=== PATIENT | male | born 1955 | race Caucasian/White ===

== ENCOUNTER 2022-06-06 11:57 | Emergency (ER) | payer MEDICARE, OTHER ==
[~2022-06-06] VITALS: Ht 193 cm; Wt 107.5 kg
--- NOTE | 2022-06-06 12:24 | NUR ---
[id number] HOME, NOTED FOREHEAD HEMATOMA S/P FALLING OFF HIS WHELLCHAIR. PT DENIES LOC. LAC ON FOREHEAD NOTED. AAOX4. VSS. PT IS WHEELCHAIR BOUND. 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 PT PLACED ON BED AND CONNECTED TO MONITOR, AWAITING MD ORDERS.
--- NOTE | 2022-06-06 12:25 | NUR ---
DR. COCHRAN AT BEDSIDE.
--- NOTE | 2022-06-06 12:37 | NUR ---
RETURN FROM CT VIA [facility]
--- NOTE | 2022-06-06 14:16 | NUR ---
PT STATES "MY SISTER WILL BE HERE TO PICK ME UP IN 20 MINS".
--- NOTE | 2022-06-06 14:26 | NUR ---
Patient discharged to home in stable condition. Written and verbal after care instructions given. Patient verbalizes understanding of instruction.
--- NOTE | 2022-06-06 14:32 | NUR ---
PT STATES HE WOULD RATHER WAIT IN THE WAITING ROOM FOR SISTER. PT TRANSFERRED TO WHEELCHAIR AND WHEELED HIMSELF TO WAITING ROOM. PT IS AAOX4. VSS.
[2022-06-06 14:35] VITALS: BP 132/77
== END 2022-06-06 14:36 | disposition home or self-care (01) ==
LOC: ER 12:33
DX: S01.81XA Laceration without foreign body of other part of head, initial encounter (principal); I12.0 Hypertensive chronic kidney disease with stage 5 chronic kidney disease or end stage renal disease; N18.6 End stage renal disease; E11.22 Type 2 diabetes mellitus with diabetic chronic kidney disease; Z99.2 Dependence on renal dialysis; Z98.890 Other specified postprocedural states; W19.XXXA Unspecified fall, initial encounter; Y93.84 Activity, sleeping; Y92.89 Other specified places as the place of occurrence of the external cause; Y99.8 Other external cause status
CPT/HCPCS: 99284; 70450; 12011; A6403

== ENCOUNTER 2023-03-03 12:53 | Inpatient (IN) | payer MEDICARE, OTHER ==
[~2023-03-03] VITALS: Ht 185.4 cm; Wt 97.5 kg
[2023-03-03 14:56] LABS: BASOPHILS # (AUTO) 0.1 K/uL (0.0-0.2); BASOPHILS % (AUTO) 0.5 % (0.0-2.0); EOSINOPHILS # (AUTO) 0.4 K/uL (0.0-0.7); EOSINOPHILS % (AUTO) 3.1 % (0.0-6.0); HEMATOCRIT 30 % (39-51); HEMOGLOBIN 10.3 g/dL (13.5-17.5); LYMPHOCYTES # (AUTO) 1.2 K/uL (0.8-4.8); LYMPHOCYTES % (AUTO) 10.6 % (20.0-44.0); MEAN CORPUSCULAR HEMOGLOBIN 34 PG (26.0-33.0); MEAN CORPUSCULAR HGB CONC 34 g/dl (31.0-36.0); MEAN CORPUSCULAR VOLUME 100 fL (80-96); MONOCYTES # (AUTO) 1.5 K/uL (0.1-1.30); MONOCYTES % (AUTO) 13.1 % (2.0-12.0); NEUTROPHILS # (AUTO) 8.5 K/uL (1.8-8.9); NEUTROPHILS % (AUTO) 72.7 % (43.0-81.0); PLATELET COUNT (AUTO) 267 K/uL (150-450); RED BLOOD CELL COUNT(AUTO) 3.02 MIL/uL (4.5-6.0); RED CELL DISTRIBUTION WIDTH 14.2 % (11.5-15.0); WHITE BLOOD COUNT (AUTO) 11.7 K/uL (4.3-11.0)
[2023-03-03 14:59] LABS: INR 1.05 (0.91-1.10); PARTIAL THROMBOPLASTIN TIME 25.8 SEC (24.3-34.3); PROTHROMBIN TIME 11.1 SECS (9.2-11.1)
[2023-03-03 15:10] LABS: CALCIUM, SERUM 9.2 mg/dL (8.5-10.1); CREATININE 5.1 mg/dL (0.6-1.3); POTASSIUM 3.4 mmol/L (3.5-5.1)
[2023-03-03] MEDS ORDERED: HYDR-4077 PO (15:16)
[2023-03-03] MEDS ORDERED: LACT10SO3 PO (15:16)
[2023-03-03] MEDS ORDERED: METO100T14 PO (15:16)
[2023-03-03] MEDS ORDERED: NIFE-35 PO (15:16)
[2023-03-03] MEDS ORDERED: ATOR80TA PO (15:16)
[2023-03-03] MEDS ORDERED: LEVO175T7 PO (15:16)
[2023-03-03] MEDS ORDERED: HYDR-4209 PO (15:16)
[2023-03-03] MEDS ORDERED: DOCU100C36 PO (15:16)
[2023-03-03] MEDS ORDERED: GABA-532 PO (15:16)
[2023-03-03] MEDS ORDERED: INSU100V7 SQ (15:37)
[2023-03-03] MEDS ORDERED: BLOO-1280 IN (15:37)
[2023-03-03] MEDS ORDERED: SEVE800T8 PO (15:37)
[2023-03-03] MEDS ORDERED: Z GUARD REMEDY 4 OZ OINT TP PRN (17:00)
[2023-03-03] MEDS ORDERED: *INSULIN REGULAR(HUMULIN R)HUM 100 UNIT/ML VIAL SQ PRN (17:00)
[2023-03-03] MEDS ORDERED: ZOLPIDEM TARTRATE 5 MG TABLET PO PRN (17:00)
[2023-03-03] MEDS ORDERED: ONDANSETRON HCL/PF 4 MG/2 ML VIAL IVP PRN (17:00)
[2023-03-03] MEDS ORDERED: ACETAMINOPHEN 325 MG TABLET PO PRN (17:00)
[2023-03-03] MEDS ORDERED: DEXTROSE 50%-WATER 50 ML DISP.SYRIN IV PRN (17:00)
[2023-03-03] MEDS ORDERED: MAG HYDROX/AL HYDROX/SIMETH 30 ML UDC PO PRN (17:00)
[2023-03-03] MEDS ORDERED: MAGNESIUM HYDROXIDE 30 ML UDC PO PRN (17:00)
[2023-03-03] MEDS: BLOOD SUGAR DIAGNOSTIC 1 EACH STRIP VI SCH ×2 (17:52→21:21)
[2023-03-03] MEDS ORDERED: DOCUSATE SODIUM 100 MG CAPSULE PO PRN (19:30)
[2023-03-03] MEDS ORDERED: hydrALAZINE HCL 50 MG TABLET PO PRN (19:30)
[2023-03-03 20:00] VITALS: BP 137/63; TEMP 97.6; O2SAT 98
[2023-03-03] MEDS ORDERED: LACTULOSE 10 G/15 ML UDC (PYXIS) PO PRN (20:00)
[2023-03-03] MEDS: METOPROLOL TARTRATE 50 MG TABLET PO SCH (21:14)
[2023-03-03] MEDS: INSULIN REGULAR, HUMAN 100 UNIT/ML 3 ML VIAL SQ PRN (21:26)
[2023-03-03] MEDS ORDERED: INSULIN GLARGINE, 100 UNIT/ML CARTRIDGE SQ SCH (22:00)
[2023-03-03] MEDS ORDERED: ATORVASTATIN 40 MG TABLET PO SCH (22:00)
[2023-03-03] MEDS ORDERED: GABAPENTIN 100 MG CAPSULE PO SCH (22:00)
[2023-03-04] VITALS: BP 130/65; TEMP 97.8; O2SAT 95
[2023-03-04 04:00] VITALS: BP 126/65; TEMP 98.4; O2SAT 97
[2023-03-04 06:13] LABS: BASOPHILS # (AUTO) 0.1 K/uL (0.0-0.2); BASOPHILS % (AUTO) 0.4 % (0.0-2.0); EOSINOPHILS # (AUTO) 0.3 K/uL (0.0-0.7); EOSINOPHILS % (AUTO) 2.3 % (0.0-6.0); HEMATOCRIT 32 % (39-51); HEMOGLOBIN 10.7 g/dL (13.5-17.5); LYMPHOCYTES # (AUTO) 1.7 K/uL (0.8-4.8); LYMPHOCYTES % (AUTO) 11.8 % (20.0-44.0); MEAN CORPUSCULAR HEMOGLOBIN 34 PG (26.0-33.0); MEAN CORPUSCULAR HGB CONC 34 g/dl (31.0-36.0); MEAN CORPUSCULAR VOLUME 100 fL (80-96); MONOCYTES # (AUTO) 2.4 K/uL (0.1-1.30); MONOCYTES % (AUTO) 16.8 % (2.0-12.0); NEUTROPHILS # (AUTO) 9.6 K/uL (1.8-8.9); NEUTROPHILS % (AUTO) 68.7 % (43.0-81.0); PLATELET COUNT (AUTO) 272 K/uL (150-450); RED BLOOD CELL COUNT(AUTO) 3.15 MIL/uL (4.5-6.0); RED CELL DISTRIBUTION WIDTH 14.4 % (11.5-15.0)
[2023-03-04 06:34] LABS: CALCIUM, SERUM 9.3 mg/dL (8.5-10.1); MAGNESIUM 2.5 mg/dL (1.8-2.4); POTASSIUM 3.5 mmol/L (3.5-5.1)
[2023-03-04] MEDS: BLOOD SUGAR DIAGNOSTIC 1 EACH STRIP VI SCH ×2 (07:24→11:53)
[2023-03-04] MEDS: INSULIN REGULAR, HUMAN 100 UNIT/ML 3 ML VIAL SQ PRN ×2 (07:26→11:53)
[2023-03-04] MEDS: BLOOD SUGAR DIAGNOSTIC 1 EACH STRIP IN SCH ×2 (07:26→11:53)
[2023-03-04] MEDS: SEVELAMER CARBONATE 800 MG TABLET PO SCH ×2 (07:27→12:23)
[2023-03-04] MEDS ORDERED: LEVOTHYROXINE SODIUM 175 MCG TABLET PO SCH (07:30)
[2023-03-04] MEDS ORDERED: PANTOPRAZOLE 40 MG TABLET.DR PO SCH (07:30)
[2023-03-04 08:00] VITALS: BP 128/76; TEMP 97.6; O2SAT 97
[2023-03-04] MEDS ORDERED: IV D5/ 0.9% NACL 1,000 ML IV PRN (08:30)
[2023-03-04] MEDS: METOPROLOL TARTRATE 50 MG TABLET PO SCH (09:00)
[2023-03-04] MEDS ORDERED: NIFEdipine XL (30MG) 30 MG TAB PO SCH (09:00)
[2023-03-04 09:29] LABS: BAND % (MANUAL) 1 % (0.0-5.0); EOSINOPHILS % (MANUAL) 1 % (0-4); LYMPHOCYTES % (MANUAL) 9 % (16-48); MONOCYTES % (MANUAL) 14 % (0-11.0); NEUTROPHILS % (MANUAL) 75 (42-76); PLATELET ESTIMATE ADEQUATE
[2023-03-04] MEDS ORDERED: HEPARIN SODIUM, PORCINE 1,000 UNIT/ML VIAL ONE (09:52)
[2023-03-04] MEDS ORDERED: FENTANYL PF 100MCG/2ML AMPUL ONE (10:10)
[2023-03-04] MEDS ORDERED: IOHEXOL 50 ML IV ONE (11:24)
[2023-03-04 12:00] VITALS: BP 121/65; TEMP 97.9; O2SAT 92
[2023-03-04] MEDS ORDERED: ANCEF 1 GM/50 ML D5W IV SCH ×2 (18:00)
== END 2023-03-04 14:19 | disposition left against medical advice (07) | DRG 673 ==
LOC: ER 12:53 → TELE1 16:21
PROVIDERS: ADMIT Student in an Organized Health Care Education/Training Program; ATTEND Student in an Organized Health Care Education/Training Program
PROC: 05PY33Z Removal of Infusion Device from Upper Vein, Percutaneous Approach (ICD-10-PCS; principal; 2023-03-04)
PROC: 0JH63XZ Insertion of Tunneled Vascular Access Device into Chest Subcutaneous Tissue and Fascia, Percutaneous Approach (ICD-10-PCS; 2023-03-04)
PROC: 02HV33Z Insertion of Infusion Device into Superior Vena Cava, Percutaneous Approach (ICD-10-PCS; 2023-03-04)
PROC: B518YZA Fluoroscopy of Superior Vena Cava using Other Contrast, Guidance (ICD-10-PCS; 2023-03-04)
DX: T82.41XA Breakdown (mechanical) of vascular dialysis catheter, initial encounter (principal); N18.6 End stage renal disease; E87.1 Hypo-osmolality and hyponatremia; I12.0 Hypertensive chronic kidney disease with stage 5 chronic kidney disease or end stage renal disease; R65.10 Systemic inflammatory response syndrome (SIRS) of non-infectious origin without acute organ dysfunction; D64.9 Anemia, unspecified; E03.9 Hypothyroidism, unspecified; D72.829 Elevated white blood cell count, unspecified; Z66 Do not resuscitate; E87.6 Hypokalemia; Z79.4 Long term (current) use of insulin; E11.22 Type 2 diabetes mellitus with diabetic chronic kidney disease; Y92.009 Unspecified place in unspecified non-institutional (private) residence as the place of occurrence of the external cause; Y71.2 Prosthetic and other implants, materials and accessory cardiovascular devices associated with adverse incidents; Z99.2 Dependence on renal dialysis; Z89.512 Acquired absence of left leg below knee; Z89.421 Acquired absence of other right toe(s); M89.8X9 Other specified disorders of bone, unspecified site; Y84.8 Other medical procedures as the cause of abnormal reaction of the patient, or of later complication, without mention of misadventure at the time of the procedure
CPT/HCPCS: 36415; 71045-TC; 80048-TC; 82962-TC; 83735-TC; 84100-TC; 85025-TC; 85730-TC; A4223; C1750; G0378; J0330; J0690; J1644; J1815; J2405; J2704; J3010; J3490; J7040; J7042; J7060; Q9967

== ENCOUNTER 2024-08-01 18:46 | Inpatient (IN) | payer MEDICARE, OTHER ==
[~2024-08-01] VITALS: Ht 195.6 cm; Wt 98.9 kg
[~2024-08-01 18:46] MED LIST: ATOR80TA PO; BLOO-1280 IN; DOCU100C36 PO; GABA-532 PO; HYDR-4077 PO; INSU100V7 SQ; LACT10SO3 PO; LEVO175T7 PO; METO100T14 PO; NIFE-35 PO; SEVE800T8 PO
[2024-08-01 19:06] LABS: BASOPHILS # (AUTO) 0.1 K/uL (0.0-0.2); BASOPHILS % (AUTO) 0.9 % (0.0-2.0); EOSINOPHILS # (AUTO) 0.1 K/uL (0.0-0.7); EOSINOPHILS % (AUTO) 1.2 % (0.0-6.0); HEMATOCRIT 39 % (39-51); HEMOGLOBIN 13.2 g/dL (13.5-17.5); LYMPHOCYTES # (AUTO) 1.3 K/uL (0.8-4.8); LYMPHOCYTES % (AUTO) 10.6 % (20.0-44.0); MEAN CORPUSCULAR HEMOGLOBIN 36 PG (26.0-33.0); MEAN CORPUSCULAR HGB CONC 34 g/dl (31.0-36.0); MEAN CORPUSCULAR VOLUME 106 fL (80-96); MONOCYTES # (AUTO) 0.9 K/uL (0.1-1.30); MONOCYTES % (AUTO) 7.1 % (2.0-12.0); NEUTROPHILS # (AUTO) 9.8 K/uL (1.8-8.9); NEUTROPHILS % (AUTO) 80.2 % (43.0-81.0); PLATELET COUNT (AUTO) 268 K/uL (150-450); RED BLOOD CELL COUNT(AUTO) 3.67 MIL/uL (4.5-6.0); RED CELL DISTRIBUTION WIDTH 14.2 % (11.5-15.0); WHITE BLOOD COUNT (AUTO) 12.2 K/uL (4.3-11.0)
[2024-08-01] MEDS ORDERED: NITROGLYCERIN 0.4 MG/TAB BOTTLE ONE (19:07)
[2024-08-01] MEDS ORDERED: methylPREDNISolone SOD SUCC 125 MG/2ML VIAL ONE (19:07)
[2024-08-01] MEDS: NITROGLYCERIN 0.4 MG/TAB BOTTLE SL ONE (19:10)
[2024-08-01] MEDS: methylPREDNISolone SOD SUCC 125 MG/2ML VIAL IV ONE (19:10)
[2024-08-01] MEDS ORDERED: Magnesium 1GM/D5W 100ML PREMIX 200 ML IV ONE (19:11)
[2024-08-01] MEDS: Magnesium 1GM/D5W 100ML PREMIX 200 ML IV ONE (19:15)
[2024-08-01] MEDS ORDERED: IPRATROPIUM NEB FS 0.5 MG/2.5 ML AMPUL.NEB ONE (19:15)
[2024-08-01] MEDS ORDERED: ALBUTEROL FS 2.5 MG/3 ML VIAL.NEB ONE (19:17)
[2024-08-01 19:18] LABS: CALCIUM, SERUM 9.1 mg/dL (8.5-10.1); CARBON DIOXIDE 32 mmol/L (21-32); CHLORIDE 95 mmol/L (98-107); CREATININE 6.6 mg/dL (0.6-1.3); GLUCOSE 151 mg/dL (74-106); POTASSIUM 3.7 mmol/L (3.5-5.1); SODIUM SERUM 140 mmol/L (136-145); UREA NITROGEN, BLOOD 46 mg/dL (7-18)
[2024-08-01] MEDS: ALBUTEROL FS 2.5 MG/3 ML VIAL.NEB NEB ONE (19:23)
[2024-08-01] MEDS: IPRATROPIUM NEB FS 0.5 MG/2.5 ML AMPUL.NEB NEB ONE (19:23)
[2024-08-01 19:30] LABS: NT-PRO BNP > 25000 pg/mL (0-125)
[2024-08-01 20:03] LABS: INR 1.04 (0.91-1.10); PARTIAL THROMBOPLASTIN TIME 27.7 SEC (24.3-34.3)
[2024-08-01] MEDS ORDERED: MAG HYDROX/AL HYDROX/SIMETH 30 ML UDC PO PRN (21:00)
[2024-08-01] MEDS ORDERED: MAGNESIUM HYDROXIDE 30 ML UDC PO PRN (21:00)
[2024-08-01] MEDS ORDERED: ONDANSETRON HCL/PF 4 MG/2 ML VIAL IVP PRN (21:00)
[2024-08-01 22:00] VITALS: BP 172/89
[2024-08-01 22:01] VITALS: BP 167/85; O2SAT 97
[2024-08-01 22:19] VITALS: BP 167/85; TEMP 97.9
[2024-08-01] MEDS: CEFTRIAXONE 1 G in IV D5W 50 ML IV SCH (22:21)
[2024-08-01] MEDS: methylPREDNISolone SOD SUCC 40 MG/ML VIAL IV SCH (22:23)
[2024-08-01] MEDS: CEFTRIAXONE 1GM BAG (ER ONLY) 50 ML IV ONE (22:35)
[2024-08-01] MEDS: HEPARIN SODIUM, PORCINE 5000 UNITS/1 ML VIAL SQ SCH (22:38)
[2024-08-01 23:00] VITALS: BP 163/89; O2SAT 99
[2024-08-01] MEDS: IV NS 0.9% 250 ML IV PRN (23:08)
[2024-08-01] MEDS: IPRATROPIUM NEB FS 0.5 MG/2.5 ML AMPUL.NEB NEB SCH (23:08)
[2024-08-01] MEDS: ALBUTEROL FS 2.5 MG/0.5 ML VIAL.NEB NEB SCH (23:08)
[2024-08-02] VITALS (29 sets, daily range): BP systolic 124–178; BP diastolic 52–95; TEMP 98–98.2; O2SAT 93–100
[2024-08-02] MEDS: LIDOCAINE 5% (PATCH) 1 EA PATCH TP SCH (00:08)
[2024-08-02 02:51] LABS: BASOPHILS % (MANUAL) 0 % (0.0-2.0); EOSINOPHILS % (MANUAL) 2 % (0-4); LYMPHOCYTES % (MANUAL) 11 % (16-48); MONOCYTES % (MANUAL) 6 % (0-11.0); NEUTROPHILS % (MANUAL) 81 (42-76)
[2024-08-02 02:52] LABS: ANISOCYTOSIS 1+; PLATELET ESTIMATE ADEQUATE; STOMATOCYTES FEW
[2024-08-02 04:58] LABS: BASOPHILS % (AUTO) 0.2 % (0.0-2.0); HEMATOCRIT 38 % (39-51); LYMPHOCYTES # (AUTO) 0.4 K/uL (0.8-4.8); LYMPHOCYTES % (AUTO) 4.9 % (20.0-44.0); MEAN CORPUSCULAR HEMOGLOBIN 36 PG (26.0-33.0); MEAN CORPUSCULAR HGB CONC 34 g/dl (31.0-36.0); MEAN CORPUSCULAR VOLUME 105 fL (80-96); MONOCYTES # (AUTO) 0.2 K/uL (0.1-1.30); MONOCYTES % (AUTO) 2.2 % (2.0-12.0); NEUTROPHILS # (AUTO) 6.9 K/uL (1.8-8.9); NEUTROPHILS % (AUTO) 92.7 % (43.0-81.0); PLATELET COUNT (AUTO) 232 K/uL (150-450); RED BLOOD CELL COUNT(AUTO) 3.61 MIL/uL (4.5-6.0); RED CELL DISTRIBUTION WIDTH 13.8 % (11.5-15.0); WHITE BLOOD COUNT (AUTO) 7.4 K/uL (4.3-11.0)
[2024-08-02 05:32] LABS: CALCIUM, SERUM 8.6 mg/dL (8.5-10.1); CREATININE 6.6 mg/dL (0.6-1.3); MAGNESIUM 2.6 mg/dL (1.8-2.4); PHOSPHORUS 5.3 mg/dL (2.5-4.9); POTASSIUM 4.1 mmol/L (3.5-5.1)
[2024-08-02] MEDS: ASPIRIN 300 MG/SUPP.RECT RC ONE (07:22)
[2024-08-02] MEDS ORDERED: DEXTROSE 50%-WATER 50 ML DISP.SYRIN IV PRN (08:00)
[2024-08-02] MEDS: PANTOPRAZOLE 40 MG VIAL IV SCH (08:05)
[2024-08-02] MEDS ORDERED: NIFE30TA91 PO (08:44)
[2024-08-02] MEDS ORDERED: ISOS10TA2 PO (08:44)
[2024-08-02] MEDS ORDERED: TICA90TA PO (08:44)
[2024-08-02] MEDS ORDERED: PANT40TA2 PO (08:44)
[2024-08-02] MEDS ORDERED: INSU100I45 SQ (08:44)
[2024-08-02] MEDS ORDERED: HYDR-4076 PO (08:44)
[2024-08-02] MEDS ORDERED: ASPI-1169 PO (08:44)
[2024-08-02] MEDS ORDERED: METO25TA4 PO (08:44)
[2024-08-02] MEDS: ACETAMINOPHEN 325 MG TABLET PO PRN (10:11)
[2024-08-02] MEDS: BLOOD SUGAR DIAGNOSTIC 1 EACH STRIP IN SCH (11:20)
[2024-08-02] MEDS: INSULIN REGULAR, HUMAN 100 UNIT/ML 3 ML VIAL SQ PRN (11:22)
[2024-08-02] MEDS: methylPREDNISolone SOD SUCC 40 MG/ML VIAL IV SCH (12:30)
[2024-08-02] MEDS: IPRATROPIUM NEB FS 0.5 MG/2.5 ML AMPUL.NEB NEB SCH (12:30)
[2024-08-02] MEDS: ALBUTEROL FS 2.5 MG/0.5 ML VIAL.NEB NEB SCH (12:30)
[2024-08-02 13:15] LABS: ABG BASE EXCESS 1.8 mmol/L (-2.0-3.0); ABG OXYGEN SATURATION 63.1 % (94.0-98.0); ABG PCO2 40.6 mmHg (35.0-48.0); ABG PH 7.428 (7.350-7.450); ABG PO2 32.8 mmHg (83.0-108.0); ABG TOTAL HEMOGLOBIN 13.3 G/dL (13.5-17.5); MetHb 0.1 % (0.0-1.5); O2Hb 62.4 % (94.0-97.0); SITE, ABG RIGHT RADIAL
[2024-08-02 20:11] LABS: INR 1.05 (0.91-1.10); PARTIAL THROMBOPLASTIN TIME 26.1 SEC (24.3-34.3); PROTHROMBIN TIME 11.1 SECS (9.2-11.1)
[2024-08-02] MEDS: HEPARIN SODIUM, PORCINE 5000 UNITS/1 ML VIAL IV ONE (20:43)
[2024-08-02] MEDS: HEPARIN INFUSION/D5W 500 ML IV PRN (20:45)
[2024-08-02] MEDS: MORPHINE SULFATE INJ 4 MG/ML DISP.SYRIN IV ONE (21:02)
[2024-08-03] VITALS (24 sets, daily range): BP systolic 132–180; BP diastolic 62–90; TEMP 97.2–98.2; O2SAT 91–100
[2024-08-03 02:59] LABS: BASOPHILS % (AUTO) 0.2 % (0.0-2.0); HEMATOCRIT 34 % (39-51); HEMOGLOBIN 11.6 g/dL (13.5-17.5); LYMPHOCYTES # (AUTO) 0.7 K/uL (0.8-4.8); LYMPHOCYTES % (AUTO) 8.2 % (20.0-44.0); MEAN CORPUSCULAR HEMOGLOBIN 35 PG (26.0-33.0); MEAN CORPUSCULAR HGB CONC 34 g/dl (31.0-36.0); MEAN CORPUSCULAR VOLUME 105 fL (80-96); MONOCYTES # (AUTO) 0.9 K/uL (0.1-1.30); MONOCYTES % (AUTO) 10.8 % (2.0-12.0); NEUTROPHILS # (AUTO) 6.9 K/uL (1.8-8.9); NEUTROPHILS % (AUTO) 80.8 % (43.0-81.0); PLATELET COUNT (AUTO) 211 K/uL (150-450); RED BLOOD CELL COUNT(AUTO) 3.27 MIL/uL (4.5-6.0); RED CELL DISTRIBUTION WIDTH 14.1 % (11.5-15.0); WHITE BLOOD COUNT (AUTO) 8.6 K/uL (4.3-11.0)
[2024-08-03 03:06] LABS: CALCIUM, SERUM 8.5 mg/dL (8.5-10.1); CREATININE 5.9 mg/dL (0.6-1.3); POTASSIUM 4.5 mmol/L (3.5-5.1)
[2024-08-03] MEDS: PANTOPRAZOLE 40 MG TABLET.DR PO SCH (08:20)
[2024-08-03] MEDS: MORPHINE SULFATE INJ 2 MG/ML DISP.SYRIN IV PRN (10:57)
[2024-08-03] MEDS ORDERED: HEPARIN SODIUM,PORCINE/PF 50 UNIT/5 ML DISP.SYRIN IV ONE ×2 (11:00)
[2024-08-03] MEDS: HEPARIN SODIUM, PORCINE 5000 UNITS/1 ML VIAL IV ONE ×2 (11:02→18:16)
[2024-08-04] VITALS (16 sets, daily range): BP systolic 139–164; BP diastolic 71–91; TEMP 97.2–97.9; O2SAT 93–100
[2024-08-04 07:24] LABS: BASOPHILS % (AUTO) 0.1 % (0.0-2.0); EOSINOPHILS % (AUTO) 0.3 % (0.0-6.0); HEMATOCRIT 34 % (39-51); HEMOGLOBIN 11.6 g/dL (13.5-17.5); LYMPHOCYTES # (AUTO) 1.7 K/uL (0.8-4.8); LYMPHOCYTES % (AUTO) 19.5 % (20.0-44.0); MEAN CORPUSCULAR HEMOGLOBIN 36 PG (26.0-33.0); MEAN CORPUSCULAR HGB CONC 34 g/dl (31.0-36.0); MEAN CORPUSCULAR VOLUME 106 fL (80-96); MONOCYTES # (AUTO) 0.9 K/uL (0.1-1.30); MONOCYTES % (AUTO) 9.9 % (2.0-12.0); NEUTROPHILS # (AUTO) 6.1 K/uL (1.8-8.9); NEUTROPHILS % (AUTO) 70.2 % (43.0-81.0); PLATELET COUNT (AUTO) 200 K/uL (150-450); RED BLOOD CELL COUNT(AUTO) 3.24 MIL/uL (4.5-6.0); RED CELL DISTRIBUTION WIDTH 14.1 % (11.5-15.0); WHITE BLOOD COUNT (AUTO) 8.7 K/uL (4.3-11.0)
[2024-08-04 07:28] LABS: ALBUMIN 3.7 g/dL (3.4-5.0); BILIRUBIN,TOTAL 0.4 mg/dL (0.2-1.0); CALCIUM, SERUM 8.4 mg/dL (8.5-10.1); CREATININE 5.2 mg/dL (0.6-1.3); MAGNESIUM 2.3 mg/dL (1.8-2.4); POTASSIUM 3.8 mmol/L (3.5-5.1); TOTAL PROTEIN, SERUM 7.5 g/dL (6.4-8.2)
[2024-08-04] MEDS ORDERED: DEXTROSE 50%-WATER 50 ML DISP.SYRIN IV PRN (07:30)
[2024-08-04] MEDS: BLOOD SUGAR DIAGNOSTIC 1 EACH STRIP IN SCH (11:26)
[2024-08-04] MEDS: INSULIN REGULAR, HUMAN 100 UNIT/ML 3 ML VIAL SQ PRN (11:30)
[2024-08-04] MEDS: NEPRO VAN 237 ML CAN PO SCH (11:40)
[2024-08-05] VITALS (21 sets, daily range): BP systolic 140–188; BP diastolic 67–92; TEMP 98.2–98.6; O2SAT 94–100
[2024-08-05 06:45] LABS: BASOPHILS % (AUTO) 0.5 % (0.0-2.0); EOSINOPHILS # (AUTO) 0.3 K/uL (0.0-0.7); EOSINOPHILS % (AUTO) 3.5 % (0.0-6.0); HEMATOCRIT 34 % (39-51); HEMOGLOBIN 11.6 g/dL (13.5-17.5); LYMPHOCYTES # (AUTO) 1.6 K/uL (0.8-4.8); LYMPHOCYTES % (AUTO) 16.8 % (20.0-44.0); MEAN CORPUSCULAR HEMOGLOBIN 36 PG (26.0-33.0); MEAN CORPUSCULAR HGB CONC 34 g/dl (31.0-36.0); MEAN CORPUSCULAR VOLUME 105 fL (80-96); MONOCYTES # (AUTO) 1.1 K/uL (0.1-1.30); MONOCYTES % (AUTO) 11.8 % (2.0-12.0); NEUTROPHILS # (AUTO) 6.5 K/uL (1.8-8.9); NEUTROPHILS % (AUTO) 67.4 % (43.0-81.0); PLATELET COUNT (AUTO) 184 K/uL (150-450); RED BLOOD CELL COUNT(AUTO) 3.26 MIL/uL (4.5-6.0); RED CELL DISTRIBUTION WIDTH 14.1 % (11.5-15.0); WHITE BLOOD COUNT (AUTO) 9.7 K/uL (4.3-11.0)
[2024-08-05 07:04] LABS: CALCIUM, SERUM 7.6 mg/dL (8.5-10.1); CREATININE 6.1 mg/dL (0.6-1.3); POTASSIUM 3.9 mmol/L (3.5-5.1)
[2024-08-05 09:30] LABS: INR 1.07 (0.91-1.10); PROTHROMBIN TIME 11.3 SECS (9.2-11.1)
[2024-08-05] MEDS ORDERED: IODIXANOL 150 ML IV ONE (16:08)
[2024-08-05] MEDS ORDERED: LIDOCAINE HCL/PF 1% 30 ML SDV ONE (16:09)
[2024-08-05] MEDS ORDERED: MIDAZOLAM HCL 2 MG/2ML VIAL ONE (16:26)
[2024-08-05] MEDS ORDERED: FENTANYL PF 100MCG/2ML AMPUL ONE ×2 (16:26→17:29)
[2024-08-05] MEDS ORDERED: IV SET PRIMARY PUMP SET 1 EA INFUS.SET MC ONE (16:51)
[2024-08-05] MEDS ORDERED: IV NS 0.9% 1,000 ML ONE (16:51)
[2024-08-05] MEDS ORDERED: hydrALAZINE HCL IV 20 MG VIAL ONE (17:11)
[2024-08-05] MEDS ORDERED: IODIXANOL 320MG/ML 100 ML IV ONE (17:14)
[2024-08-05] MEDS: MUPIROCIN OINT 2% 22 GM TUBE NS SCH (22:12)
[2024-08-05] MEDS ORDERED: IV NS 0.9% 250 ML IV PRN (23:00)
[2024-08-05] MEDS: HYDROCODONE/APAP 5/325MG TABLET PO ONE (23:17)
[2024-08-05] MEDS: HEPARIN SODIUM, PORCINE 5000 UNITS/1 ML VIAL IV ONE (23:18)
[2024-08-06] VITALS (27 sets, daily range): BP systolic 104–169; BP diastolic 64–110; TEMP 97.9; O2SAT 95–100
[2024-08-06 01:07] LABS: HEPATITIS B SURFACE AB (QUAL) Non Reactive (.)
[2024-08-06 04:01] LABS: CREATININE 7.1 mg/dL (0.6-1.3); POTASSIUM 4.4 mmol/L (3.5-5.1)
[2024-08-06 04:03] LABS: BASOPHILS % (AUTO) 0.3 % (0.0-2.0); EOSINOPHILS % (AUTO) 0.2 % (0.0-6.0); HEMATOCRIT 37 % (39-51); MEAN CORPUSCULAR HEMOGLOBIN 35 PG (26.0-33.0); MEAN CORPUSCULAR HGB CONC 33 g/dl (31.0-36.0); MEAN CORPUSCULAR VOLUME 105 fL (80-96); MONOCYTES % (AUTO) 10.9 % (2.0-12.0); NEUTROPHILS # (AUTO) 6.8 K/uL (1.8-8.9); NEUTROPHILS % (AUTO) 77.6 % (43.0-81.0); PLATELET COUNT (AUTO) 208 K/uL (150-450); RED BLOOD CELL COUNT(AUTO) 3.48 MIL/uL (4.5-6.0); WHITE BLOOD COUNT (AUTO) 8.8 K/uL (4.3-11.0)
[2024-08-06] MEDS: hydrALAZINE HCL 25 MG TABLET PO SCH (04:45)
[2024-08-06] MEDS: ISOSORBIDE DINITRATE (10MG) 10 MG TABLET PO SCH (08:37)
[2024-08-06] MEDS: SEVELAMER CARBONATE 800 MG TABLET PO SCH (08:37)
[2024-08-06] MEDS: ASPIRIN 81 MG TAB.CHEW PO SCH (08:37)
[2024-08-06] MEDS: TICAGRELOR 90 MG TABLET PO SCH (08:37)
[2024-08-06] MEDS: LEVOTHYROXINE SODIUM 175 MCG TABLET PO SCH (08:42)
[2024-08-06 09:29] LABS: BASOPHILS % (AUTO) 0.3 % (0.0-2.0); EOSINOPHILS # (AUTO) 0.1 K/uL (0.0-0.7); HEMATOCRIT 35 % (39-51); HEMOGLOBIN 11.6 g/dL (13.5-17.5); LYMPHOCYTES # (AUTO) 1.2 K/uL (0.8-4.8); LYMPHOCYTES % (AUTO) 14.4 % (20.0-44.0); MEAN CORPUSCULAR HEMOGLOBIN 35 PG (26.0-33.0); MEAN CORPUSCULAR HGB CONC 34 g/dl (31.0-36.0); MEAN CORPUSCULAR VOLUME 105 fL (80-96); MONOCYTES % (AUTO) 11.4 % (2.0-12.0); NEUTROPHILS # (AUTO) 6.1 K/uL (1.8-8.9); NEUTROPHILS % (AUTO) 72.9 % (43.0-81.0); PLATELET COUNT (AUTO) 213 K/uL (150-450); RED BLOOD CELL COUNT(AUTO) 3.29 MIL/uL (4.5-6.0); RED CELL DISTRIBUTION WIDTH 14.2 % (11.5-15.0); WHITE BLOOD COUNT (AUTO) 8.4 K/uL (4.3-11.0)
[2024-08-06] MEDS ORDERED: NEPRO 1,000 ML BOTTLE GT PRN (10:00)
[2024-08-06] MEDS: NIFEdipine XL (30MG) 30 MG TAB PO SCH (13:17)
[2024-08-06] MEDS: METOPROLOL SUCCINATE 25 MG TAB.SR.24H PO SCH (16:43)
[2024-08-06] MEDS: ATORVASTATIN 40 MG TABLET PO SCH (21:13)
[2024-08-07] VITALS (13 sets, daily range): BP systolic 131–153; BP diastolic 61–71; TEMP 97.3–98.4; O2SAT 94–100
[2024-08-07 07:10] LABS: BASOPHILS % (AUTO) 0.1 % (0.0-2.0); EOSINOPHILS # (AUTO) 0.1 K/uL (0.0-0.7); EOSINOPHILS % (AUTO) 0.8 % (0.0-6.0); HEMATOCRIT 31 % (39-51); HEMOGLOBIN 10.6 g/dL (13.5-17.5); LYMPHOCYTES # (AUTO) 1.2 K/uL (0.8-4.8); LYMPHOCYTES % (AUTO) 11.1 % (20.0-44.0); MEAN CORPUSCULAR HEMOGLOBIN 36 PG (26.0-33.0); MEAN CORPUSCULAR HGB CONC 35 g/dl (31.0-36.0); MEAN CORPUSCULAR VOLUME 104 fL (80-96); MONOCYTES # (AUTO) 1.2 K/uL (0.1-1.30); MONOCYTES % (AUTO) 11.1 % (2.0-12.0); NEUTROPHILS # (AUTO) 8.1 K/uL (1.8-8.9); NEUTROPHILS % (AUTO) 76.9 % (43.0-81.0); PLATELET COUNT (AUTO) 200 K/uL (150-450); RED BLOOD CELL COUNT(AUTO) 2.95 MIL/uL (4.5-6.0); WHITE BLOOD COUNT (AUTO) 10.5 K/uL (4.3-11.0)
[2024-08-07 07:51] LABS: ALBUMIN 3.5 g/dL (3.4-5.0); BILIRUBIN,TOTAL 0.4 mg/dL (0.2-1.0); CALCIUM, SERUM 8.4 mg/dL (8.5-10.1); CREATININE 6.6 mg/dL (0.6-1.3); MAGNESIUM 2.4 mg/dL (1.8-2.4); PHOSPHORUS 4.8 mg/dL (2.5-4.9); TOTAL PROTEIN, SERUM 6.9 g/dL (6.4-8.2)
[2024-08-07] MEDS: hydrALAZINE HCL 25 MG TABLET PO SCH (13:37)
[2024-08-08] VITALS (13 sets, daily range): BP systolic 127–148; BP diastolic 52–67; TEMP 97.5–98.4; O2SAT 94–100
[2024-08-08 06:46] LABS: BASOPHILS % (AUTO) 0.1 % (0.0-2.0); EOSINOPHILS # (AUTO) 0.1 K/uL (0.0-0.7); EOSINOPHILS % (AUTO) 0.6 % (0.0-6.0); HEMATOCRIT 29 % (39-51); HEMOGLOBIN 9.7 g/dL (13.5-17.5); LYMPHOCYTES # (AUTO) 1.2 K/uL (0.8-4.8); LYMPHOCYTES % (AUTO) 12.5 % (20.0-44.0); MEAN CORPUSCULAR HEMOGLOBIN 35 PG (26.0-33.0); MEAN CORPUSCULAR HGB CONC 34 g/dl (31.0-36.0); MEAN CORPUSCULAR VOLUME 106 fL (80-96); MONOCYTES % (AUTO) 10.6 % (2.0-12.0); NEUTROPHILS # (AUTO) 7.1 K/uL (1.8-8.9); NEUTROPHILS % (AUTO) 76.2 % (43.0-81.0); PLATELET COUNT (AUTO) 214 K/uL (150-450); RED BLOOD CELL COUNT(AUTO) 2.74 MIL/uL (4.5-6.0); RED CELL DISTRIBUTION WIDTH 14.4 % (11.5-15.0); WHITE BLOOD COUNT (AUTO) 9.4 K/uL (4.3-11.0)
[2024-08-08 08:09] LABS: CALCIUM, SERUM 8.3 mg/dL (8.5-10.1); MAGNESIUM 2.4 mg/dL (1.8-2.4); PHOSPHORUS 5.6 mg/dL (2.5-4.9); POTASSIUM 4.4 mmol/L (3.5-5.1)
[2024-08-08] MEDS ORDERED: HYDR-4076 PO (09:58)
[2024-08-08 10:11] LABS: ANISOCYTOSIS 1+; LYMPHOCYTES % (MANUAL) 11 % (16-48); MONOCYTES % (MANUAL) 8 % (0-11.0); NEUTROPHILS % (MANUAL) 81 (42-76); PLATELET ESTIMATE ADEQUATE
[2024-08-09] VITALS (11 sets, daily range): BP systolic 122–136; BP diastolic 56–60; TEMP 97.2–97.9; O2SAT 95–99
[2024-08-09] MEDS ORDERED: ALBU8.5H8 INH (12:08)
[2024-08-09] MEDS ORDERED: BACL5TAB PO (12:08)
[2024-08-09] MEDS ORDERED: HYDR-3972 PO (12:12)
== END 2024-08-09 14:31 | disposition home or self-care (01) | DRG 280 ==
LOC: ER 18:59 → ICU 20:58 → MED 08-03 18:35 → TELE 08-03 20:24 → ICU 08-05 17:57 → TELE 08-06 15:30
PROVIDERS: ATTEND Nurse Practitioner Acute Care
PROC: 5A09357 Assistance with Respiratory Ventilation, Less than 24 Consecutive Hours, Continuous Positive Airway Pressure (ICD-10-PCS; principal; 2024-08-01)
PROC: 5A1D70Z Performance of Urinary Filtration, Intermittent, Less than 6 Hours Per Day (ICD-10-PCS; 2024-08-02)
PROC: 4A023N7 Measurement of Cardiac Sampling and Pressure, Left Heart, Percutaneous Approach (ICD-10-PCS; 2024-08-05)
PROC: B211YZZ Fluoroscopy of Multiple Coronary Arteries using Other Contrast (ICD-10-PCS; 2024-08-05)
PROC: B44LZZZ Ultrasonography of Femoral Artery (ICD-10-PCS; 2024-08-05)
DX: I21.4 Non-ST elevation (NSTEMI) myocardial infarction (principal); J96.01 Acute respiratory failure with hypoxia; N18.6 End stage renal disease; J44.1 Chronic obstructive pulmonary disease with (acute) exacerbation; I13.2 Hypertensive heart and chronic kidney disease with heart failure and with stage 5 chronic kidney disease, or end stage renal disease; Z79.4 Long term (current) use of insulin; D64.9 Anemia, unspecified; D72.829 Elevated white blood cell count, unspecified; E11.22 Type 2 diabetes mellitus with diabetic chronic kidney disease; E66.01 Morbid (severe) obesity due to excess calories; E83.41 Hypermagnesemia; G47.33 Obstructive sleep apnea (adult) (pediatric); I25.5 Ischemic cardiomyopathy; Z99.2 Dependence on renal dialysis; Z98.61 Coronary angioplasty status; E83.9 Disorder of mineral metabolism, unspecified; I50.9 Heart failure, unspecified; Z99.3 Dependence on wheelchair; I25.10 Atherosclerotic heart disease of native coronary artery without angina pectoris; F17.210 Nicotine dependence, cigarettes, uncomplicated; E11.51 Type 2 diabetes mellitus with diabetic peripheral angiopathy without gangrene; Z68.25 Body mass index [BMI] 25.0-25.9, adult; Z89.511 Acquired absence of right leg below knee
CPT/HCPCS: 36415; 71045-TC; 80048-TC; 80053-TC; 82962-TC; 83735-TC; 83880; 84100-TC; 84484-TC; 85025-TC; 85610-TC; 85730-TC; 86706; 87081-TC; 87340; 90935-TC; 93307-TC; 94761-TC; 94799-TC; 99082-TC; A4223; A6253; G0378; J0360; J0696; J1642; J1644; J1815; J2250; J2270; J2470; J2919; J3010; J3475; J3490; J7030; J7050; J7060; Q9967

== ENCOUNTER 2024-11-21 16:41 | Emergency (ER) | payer MEDICARE, OTHER ==
[~2024-11-21] VITALS: Ht 193 cm; Wt 97.1 kg
[~2024-11-21 16:41] MED LIST changes: +ALBU8.5H8 INH; +ASPI-1169 PO; -BLOO-1280 IN; -DOCU100C36 PO; -GABA-532 PO; +HYDR-3972 PO; +HYDR-4076 PO; -HYDR-4077 PO; +INSU100I45 SQ; -INSU100V7 SQ; +ISOS10TA2 PO; -LACT10SO3 PO; -METO100T14 PO; +METO25TA4 PO; -NIFE-35 PO; +NIFE30TA91 PO; +PANT40TA2 PO; +TICA90TA PO
[2024-11-21 17:12] VITALS: TEMP 98.1
[2024-11-21 18:11] VITALS: BP 132/70; O2SAT 97
== END 2024-11-21 18:11 | disposition home or self-care (01) ==
LOC: ER 16:43
DX: R60.0 Localized edema (principal); I12.0 Hypertensive chronic kidney disease with stage 5 chronic kidney disease or end stage renal disease; E11.51 Type 2 diabetes mellitus with diabetic peripheral angiopathy without gangrene; E11.22 Type 2 diabetes mellitus with diabetic chronic kidney disease; N18.6 End stage renal disease; Z79.4 Long term (current) use of insulin; Z79.82 Long term (current) use of aspirin; Z79.899 Other long term (current) drug therapy; Z89.431 Acquired absence of right foot; Z89.512 Acquired absence of left leg below knee; Z99.2 Dependence on renal dialysis; Z60.2 Problems related to living alone
CPT/HCPCS: 93970-TC

== ENCOUNTER 2024-12-18 07:52 | Day surgery (SDC) | payer MEDICARE, OTHER ==
[~2024-12-18 07:52] MED LIST changes: +HEPARIN SODIUM, PORCINE 1,000 UNIT/ML VIAL ONE; +IOHEXOL 50 ML IV ONE; +LIDOCAINE 1% INJ 50 ML MDV IJ ONE
[2024-12-18 09:12] LABS: CALCIUM, SERUM 8.7 mg/dL (8.5-10.1); CREATININE 5.2 mg/dL (0.6-1.3); SODIUM SERUM 137.0 mmol/L (136-145); UREA NITROGEN, BLOOD 26.0 mg/dL (7-18)
[2024-12-18 09:18] LABS: ASPARTATE AMINOTRANSFERASE 18.0 U/L (15-37); TOTAL PROTEIN, SERUM 7.1 g/dL (6.4-8.2)
[2024-12-18] MEDS ORDERED: ONDANSETRON HCL/PF 4 MG/2 ML VIAL ONE (11:03)
== END 2024-12-18 13:00 | disposition home or self-care (01) ==
LOC: DS 07:52
PROVIDERS: ATTEND Surgery Vascular Surgery
DX: I13.2 Hypertensive heart and chronic kidney disease with heart failure and with stage 5 chronic kidney disease, or end stage renal disease (principal); I50.9 Heart failure, unspecified; E11.22 Type 2 diabetes mellitus with diabetic chronic kidney disease; N18.6 End stage renal disease; J44.9 Chronic obstructive pulmonary disease, unspecified; Z79.4 Long term (current) use of insulin; Z79.82 Long term (current) use of aspirin; Z79.899 Other long term (current) drug therapy; Z99.2 Dependence on renal dialysis; Z98.890 Other specified postprocedural states; Z87.891 Personal history of nicotine dependence
CPT/HCPCS: 36415; 71045-TC; 80053-TC; 82962-TC; C1769; J0690; J1644; J2405; J2704; J3490; J7030; Q9967